=== PATIENT | male | born 1985 ===

== ENCOUNTER 2017-09-16 08:55 | Emergency (ER) | payer MEDICAID ==
[2017-09-16 09:12] VITALS: BP 160/93; PULSE 77; TEMP 98.3; O2SAT 96
[2017-09-16 10:01] VITALS: RESP 20
--- NOTE | 2017-09-16 10:15 | C.PDOC ---
Time Seen by Provider: 09/16/17 09:46 Chief Complaint (Nursing): Shortness Of Breath History Per: Patient Onset/Duration Of Symptoms: Days (about 2-3 weeks) Current Symptoms Are (Timing): Still Present Initiating Event: Other (Allergies?) Exacerbating Factor(s): Coughing Current Respiratory Medications: See Home Med List, Albuterol Severity: Moderate Additional History Per: Prior Records Past Medical History Reviewed: Historical Data, Nursing Documentation, Vital Signs Vital Signs: Last Vital Signs Temp 98.3 F 09/16/17 09:11 Pulse 77 09/16/17 09:11 Resp 20 09/16/17 10:00 BP 160/93 H 09/16/17 09:11 Pulse Ox 96 09/16/17 09:11 - Medical History PMH: Asthma Family History: States: Unknown Family Hx - Social History Hx Tobacco Use: No Hx Alcohol Use: Yes Hx Substance Use: No - Immunization History Hx Tetanus Toxoid Vaccination: No Hx Influenza Vaccination: No Hx Pneumococcal Vaccination: No Review Of Systems Except As Marked, All Systems Reviewed And Found Negative. Constitutional: Negative for: Fever, Weakness ENT: Positive for: Nose Congestion Cardiovascular: Negative for: Chest Pain Respiratory: Positive for: Cough, Shortness of Breath. Negative for: Hemoptysis Gastrointestinal: Negative for: Vomiting, Abdominal Pain Musculoskeletal: Negative for: Neck Pain, Back Pain, Leg Pain Skin: Negative for: Rash Neurological: Negative for: Weakness, Numbness Physical Exam - Physical Exam Appears: Non-toxic, No Acute Distress Skin: Normal Color, Warm, Dry, No Rash Head: Atraumatic, Normacephalic Eye(s): bilateral: Normal Inspection, PERRL, EOMI Ear(s): Bilateral: Normal Throat: Normal Neck: Normal ROM, Supple Cardiovascular: Rhythm Regular Respiratory: Normal Breath Sounds, No Accessory Muscle Use Gastrointestinal/Abdominal: Soft, No Tenderness Back: No CVA Tenderness Extremity: Normal ROM, No Pedal Edema, No Calf Tenderness Neurological/Psych: Oriented x3, Normal Speech, Normal Motor, Normal Sensation ED Course And Treatment O2 Sat by Pulse Oximetry: 96 Pulse Ox Interpretation: Normal Disposition Counseled Patient/Family Regarding: Diagnosis, Need For Followup, Rx Given - Disposition Referrals: at [facility] [Outside] Disposition: HOME/ ROUTINE Disposition Time: 10:13 Condition: STABLE Additional Instructions: Follow up with your doctor or in the clinic for further evaluation and treatment. Return to the ER if you develop shortness of breath, fever, chest pain, worsening of symptoms or if you have any other concerns. Prescriptions: Albuterol HFA [Ventolin HFA 90 mcg/actuation (8 g)] 2 puff IH Q4 PRN #1 unit PRN Reason: Wheezing Loratadine [Claritin] 10 mg PO DAILY #30 tab Montelukast Sodium [Singulair] 10 mg PO HS #30 tab Instructions: Seasonal Allergies (DC) Forms: [employer] (Swedish) Print Language: KHMER - Clinical Impression Clinical Impression: Asthma, Seasonal allergies
== END 2017-09-16 10:24 | disposition home or self-care (01) ==
LOC: C.ER 08:55
DX: J45.909 Unspecified asthma, uncomplicated (principal)